=== PATIENT | male | born 1950 | race Caucasian/White ===

== ENCOUNTER 2017-03-02 10:41 | Day surgery (SDC) | payer MEDICARE ==
[~2017-03-02 10:41] MED LIST: Buffered Lidocaine 0.9% SYRIN* 5 ML/SYR SYRINGE INTRADERM ONE; Buffered Lidocaine 0.9% SYRIN* 5 ML/SYR SYRINGE ONE; DiMENhydriNATE IV* 50 MG/ML VIAL IV PUSH PRN; Famotidine IV* 10 MG/ML 2 ML (20 mg) IV ONE; Famotidine IV* 10 MG/ML 2 ML (20 mg) ONE; Morphine INJ* 2 MG/ML 1 ML CARPUJECT IV PRN; PROCHLORPERAZINE INJ 5 MG/ML 2 ML VIAL IV PRN; Scopolamine 1.5 mg* PATCH TRANSDERM PRN; ceFAZolin 2 GM PREMIX (*) 2 GM/50 ML BAG IVPB ONE; fentaNYL* 50 MCG/ML 2 ML VIAL (100 MCG VIAL) IV PRN; oxyCODONE/Acetamin 5/325 MG* TAB PO PRN
[2017-03-02] MEDS ORDERED: ceFAZolin 1 GM ADVAN(*) 1 GM ADDV.VIAL IVPB ONE (11:13)
[2017-03-02] MEDS ORDERED: KETAMINE HCL* 50 MG/ML 10 ML VIAL ONE (11:28)
[2017-03-02] MEDS ORDERED: Midazolam* 1 MG/ML 5 ML VIAL (5 MG) ONE (11:28)
[2017-03-02] MEDS ORDERED: fentaNYL* 50 MCG/ML 2 ML VIAL (100 MCG VIAL) ONE ×2 (11:28→14:46)
[2017-03-02] MEDS ORDERED: Bupivacaine 0.5% SDV PF* 30 ML VIAL ONE (12:20)
[2017-03-02] MEDS ORDERED: Ketorolac INJ* 30 MG/ML 1 ML VIAL ONE (13:24)
[2017-03-02] MEDS ORDERED: Ondansetron INJ* 2 MG/ML VIAL ONE (13:24)
[2017-03-02] MEDS ORDERED: Dexamethasone IV* 4 MG/ML 1 ML (4 MG) ONE (13:24)
[2017-03-02] MEDS ORDERED: Lidocaine 2% PF * 5 ML VIAL ONE ×2 (13:50)
[2017-03-02] MEDS ORDERED: Propofol* 10 MG/ML 20 ML BTL IV PUSH ONE (13:50)
[2017-03-02] MEDS ORDERED: oxyCODONE/Acetamin 5/325 MG* TAB ONE (14:47)
[2017-03-02] MEDS ORDERED: hydrALAZINE IV* 20 MG/ML VIAL IV SLOW PU ONE (14:55)
[2017-03-02] MEDS ORDERED: hydrALAZINE IV* 20 MG/ML VIAL ONE (14:59)
[2017-03-02 16:44] VITALS: BP 163/90
--- NOTE | 2017-03-03 06:42 | OP ---
DATE OF OPERATION: 03/02/17 - [facility] DATE OF : 46 SURGEON: Rocky Joe MD CABLE CUTTER AND SWAGER: LEONIE Nash ANESTHESIOLOGIST: Tristan Reyna MD ANESTHESIA: General endotracheal anesthesia. PRE-OP DIAGNOSES: 1. Left knee medial meniscus tear. 2. Left knee medial femoral condyle cartilage defect. POST-OP DIAGNOSES: 1. Left knee medial meniscus tear. 2. Left knee medial femoral condyle cartilage defect. OPERATIVE PROCEDURE: 1. Left knee arthroscopy with partial medial meniscectomy. 2. Left knee arthroscopy with debridement of osteochondral lesion and microfracture of the osteochondral lesion. IMPLANTS: None. TOURNIQUET TIME: None. ESTIMATED BLOOD LOSS: Minimal. COMPLICATIONS: None. STATUS: Stable from the operating room to the recovery room and then home. INDICATIONS FOR PROCEDURE: Cliff is a very pleasant man who has had problems with his knees for years, especially in the left side. He had always gotten better with rest, physical therapy, and injections; however, for about the last month and a half to 2 months he has had left knee pain and swelling that has not improved with these modalities, that is when he came to see me and I was concerned for a meniscus tear, so an MRI was ordered, which did confirm a medial meniscus tear as well as medial femoral condyle osteochondral lesion. We discussed continued nonoperative treatment, but he was frustrated with his lack of progress with this. So we did discuss operative treatment as well. Further, we discussed the nature and risks of surgery in careful detail in the office as well as in the preoperative holding area. Our discussions regarding the risks of surgery included, but were not limited to infection, wound problems , nerve injury, neuroma, RSD, persistent symptoms, persistent pain, worsening of arthritis, recurrent problems, and even remote chance of catastrophic complication including the loss of limb. DESCRIPTION OF PROCEDURE: The patient was seen in the preoperative holding unit. Informed and written consent was obtained. The appropriate extremity was marked. The patient was then brought to the operating room and carefully positioned on the operating room table. Anesthesia was induced. All bony prominences were padded with great care. A thigh post was placed. A chlorhexidine based pre-scrub was performed followed by a standard ChloraPrep and drape in a sterile fashion. Surgical safety pause has been conducted in which we confirmed the appropriate patient, extremity, planned procedure, availability of equipment, indication, and administration of prophylactic antibiotics, and DVT prophylaxis in the form of compression boot on the nonsurgical extremity. I began by injecting 20 cc of sterile saline into the joint. I then placed a standard anterolateral portal and performed a diagnostic knee arthroscopy. There were some loose bodies noted in the suprapatellar pouch as well as the lateral gutter and in the notch. He did have some generalized arthritic changes , [place] grade 3 to grade 4. In the medial compartment, there was a focal osteochondral defect measuring about 8 x 8 mm. An anteromedial portal was placed under direct visualization and the medial meniscus was examined. There was shown to be a large degenerative tear posteriorly and medially. This was quite complex and more substantial than the MRI led me to believe. Using a biter and a shaver, this was debrided back to a stable rim. All loose bodies were then removed from the joint and the joint was inspected again. At this point, a microfracture awl was placed into the joint and 5 microfracture holes were placed into the focal osteochondral defect. There was some bleeding from the marrow afterwards which was encouraging. At this point, one last trip around the knee was taken to remove any residual loose bodies and pieces of cartilage. The fluid was then sucked out of the joint and the portals were closed with 3-0 nylon sutures. A sterile dressing was placed. Jose-stocking was then placed followed by a Cryo/Cuff. All needle and sponge counts were correct at the end of the case. The patient was awaken from anesthesia and transferred to the recovery room in stable condition. There were no complications. ATTESTATION: I attest that I was present, scrubbed, and performed the entire procedure myself. POSTOPERATIVE PLAN: The patient will remain touch-down weightbearing with crutches for an anticipated duration of 2 weeks. Followup with me in 2 weeks for likely suture removal, Steri-Strip application, and progression of activities. [id number]/[facility] #: [id number] ABAD
[2017-03-05] MEDS ORDERED: Scopolamine PATCH Remove* 1 NOTE MISC PATCH OFF ONE (05:47)
== END 2017-03-02 16:45 | disposition home or self-care (01) ==
LOC: OR 10:41
PROVIDERS: ATTEND Orthopaedic Surgery
DX: M23.204 Derangement of unspecified medial meniscus due to old tear or injury, left knee (principal); M93.862 Other specified osteochondropathies, left lower leg; I45.10 Unspecified right bundle-branch block; I10 Essential (primary) hypertension; I48.92 Unspecified atrial flutter; E78.5 Hyperlipidemia, unspecified; Z87.891 Personal history of nicotine dependence
CPT/HCPCS: A9270-GY; J0360; J0690; J1100; J1885; J2250; J2405; J2704; J3010